=== PATIENT | female | born 1985 | race Asian ===

== ENCOUNTER 2018-10-02 06:10 | Day surgery (SDC) | payer OTHER ==
[2018-10-02] VITALS (8 sets, daily range): BP systolic 96–111; BP diastolic 57–73; PULSE 56–64; RESP 16–22; Ht 154.9 cm; Wt 47.9 kg
[~2018-10-02] VITALS: Ht 154.9 cm; Wt 47.9 kg
[~2018-10-02 06:10] MED LIST: CEFAZOLIN 2 GM/50 ML (PMX) 50 ML IVPB ONE; SOD CHLORIDE 0.9% 1,000 ML IV SCH
[2018-10-02] MEDS ORDERED: BUPIVACAINE 0.25% (MPF) 30 ML INJ ONE (08:19)
--- NOTE | 2018-10-02 08:33 | PREAC ---
Date/Time of Note Date/Time of Note DATE: 10/02/18 TIME: 08:32 Anesthesia Eval and Record Evaluation Time Pre-Procedure Interview DATE: 10/02/18 TIME: 08:32 Age 33 Sex female NPO: 8 hrs Preoperative diagnosis left axillary mass Planned procedure left axillary mass excision Past Medical History Past Medical History: None Surgery & Anesthesia Issues No known issue Meds Anticoagulation: No Beta Jama within 24 hr: No Reason Beta Jama not given: Pt. not on B-Jama No Active Prescriptions or Reported Meds Current Medications Sodium Chloride 1,000 ml @ 75 mls/hr [id number] IV Last administered on 10/02/18at 07:46; Admin Dose 75 MLS/HR; Start 10/02/18 at 06:00; Stop 10/02/18 at 19:19 Meds reviewed: Yes Allergies Coded Allergies: No Known Allergy (Unverified , 10/02/18) Allergies Reviewed: Yes Labs/Studies Labs Reviewed: Reviewed by anesthesiologist Result Diagram: 10/02/1871910/02/1820 Laboratory Tests 10/02/18 07:20 test: Negative Pre-procedure Exam Last vitals Vital Signs Date Temp Pulse Resp B/P (MAP) Pulse Ox O2 O2 Flow FiO2 Time Delivery Rate 10/02/18 97.5 63 16 111/73 100 Room Air 07:28 (86) Airway: Adequate mouth opening, Adequate thyromental dist Mallampati: Mallampati II Teeth: Normal Lung: Normal Heart: Normal ASA Physical Status ASA physical status: 1 Emergency: None Planned Pain Management Local by surgeon Pre-operative Attestations Prior to commencing anesthesia and surgery, the patient was re-evaluated, there was verification of: *The patient's identity *The results of appropriate recent lab work and preoperative vital signs *The above evaluation not changing prior to induction *Anesthetic plan, risk benefits, alternative and complications discussed with patient/family; questions answered; patient/family understands, accepts and wishes to proceed. Delvin Richardson M.D. Oct 02, 2018 08:33
[2018-10-02] MEDS ORDERED: LIDOCAINE 2% (MDV) 20 ML INJ ONE (08:38)
[2018-10-02] MEDS ORDERED: BUPIVACAINE 0.5% (SDV) 30 ML INJ ONE (08:38)
[2018-10-02] MEDS ORDERED: PROPOFOL 20 ML ONE (08:49)
[2018-10-02] MEDS ORDERED: LIDOCAINE 2% (SDV) 5 ML INJ ONE (08:49)
[2018-10-02] MEDS ORDERED: ONDANSETRON 4 MG INJ ONE (08:50)
[2018-10-02] MEDS ORDERED: MIDAZOLAM 1 MG/ML 2 ML INJ ONE (08:50)
[2018-10-02] MEDS ORDERED: HYDROmorphONE 1 MG/5 ML IV SYRINGE IV PRN ×3 (09:00)
[2018-10-02] MEDS ORDERED: FENTAnyl 50 MCG/ML VIAL IV PRN ×3 (09:00)
[2018-10-02] MEDS ORDERED: MEPERIDINE 25 MG INJ IV PRN (09:00)
[2018-10-02] MEDS ORDERED: MIDAZOLAM 1 MG/ML 2 ML INJ IV PRN (09:00)
[2018-10-02] MEDS ORDERED: LABETALOL HCL 20MG INJ IV PRN (09:00)
[2018-10-02] MEDS ORDERED: IPRATROPIUM (NEB) 0.5 MG/2.5 ML AMP HHN PRN (09:00)
[2018-10-02] MEDS ORDERED: EPHEDrine 25 MG/5 ML SYG IV PRN (09:00)
[2018-10-02] MEDS ORDERED: TRIMETHOBENZAMIDE 100 MG/ML VIAL IM PRN (09:00)
[2018-10-02] MEDS ORDERED: ONDANSETRON 4 MG INJ IV PRN (09:00)
[2018-10-02] MEDS ORDERED: ALBUTEROL 0.083% (NEB) 2.5 MG/3 ML AMP HHN PRN (09:00)
[2018-10-02] MEDS ORDERED: DIPHENHYDRAMINE 50 MG INJ IV PRN (09:00)
[2018-10-02] MEDS ORDERED: OXYCODONE/ACETAMINOPHEN (5/325) TAB PO PRN ×2 (09:00)
[2018-10-02] MEDS ORDERED: hydrALAzine 20 MG INJ IV PRN (09:00)
--- NOTE | 2018-10-02 09:15 | OPR ---
Date/Time of Note Date/Time of Note DATE: 10/02/18 TIME: 09:13 Operative Report Procedure Date: Oct 02, 2018 Preoperative Diagnosis left axillary mass Postoperative Diagnosis same Operation/Procedure Performed 1. excision of left axillary mass 3 cm mass 3 cm incision 2. localized adjacent tissue transfer with the use of skin flaps 6 sq cm defect of left axilla 3. 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 She requests surgical excision of the left axillary mass. Risks alternatives benefits and percent were discussed the patient. Patient expressed understanding and consents to the operation. Procedure Description Patient is taken to the OR and prepped and draped in usual sterile fashion. Surgical time was performed. IV antibiotics given. Therapeutic subcutaneous local anesthesia was injected all around the mass of the left axilla. Elliptical incision was made with a 15 blade. Dissection with cautery skin onto the mass and the mass was circumferentially excised. Good hemostasis status. Due to tissue defect localization just transfer with these of skin flaps were performed. Multilayer closed with interrupted 0 Vicryl running 4-0 Monocryl. Sterile strips and dry dressings were applied. Isreal SANCHEZ Oct 02, 2018 09:15
[2018-10-02] MEDS ORDERED: HYDROCODONE/APAP (5/325) TAB PO ONE (09:30)
--- NOTE | 2018-10-02 09:45 | PAC ---
Date/Time of Note Date/Time of Note DATE: 10/02/18 TIME: 09:44 Post-Anesthesia Notes Post-Anesthesia Note Last documented vital signs Vital Signs Date Temp Pulse Resp B/P (MAP) Pulse Ox O2 O2 Flow FiO2 Time Delivery Rate 10/02/18 97.5 63 16 111/73 100 Room Air 07:28 (86) Activity: WNL Respiratory function: WNL Cardiovascular function: WNL Mental status: Baseline Pain reasonably controlled: Yes Hydration appropriate: Yes Nausea/Vomiting absent: Yes Delvin Richardson M.D. Oct 02, 2018 09:45
== END 2018-10-02 11:16 | disposition home or self-care (01) ==
LOC: SDS 06:10
PROVIDERS: ATTEND Surgery
DX: L73.8 Other specified follicular disorders (principal)
CPT/HCPCS: 14040; 80053; 84703; 85025; 85610; 85730; 88307; J0690; J2250; J2405; J3010; Z7512; Z7610